=== PATIENT | female | born 1985 | race Caucasian/White ===

== ENCOUNTER → 2017-09-08 | Outpatient (CLI) | payer OTHER ==
--- NOTE | 2017-09-09 08:25 | BMR ---
EXAMINATION TYPE: MR breast BILAT wo/w con DATE OF EXAM: 09/08/2017 COMPARISON: Most recent bilateral 3-D breast mammogram September 27, 2015 BI-RADS 4. Complete right br east ultrasound September 27, 2015 BI-RADS 1. Complete right breast ultrasound January 27, 2016 BI-RADS 1. HISTORY: FAMILY HX BREAST CA, RT MASS or lump. Patient states has palpable lump that changes in size when patient is on control. Last known menstrual period August 25. CONTRAST: Multiplanar, multisequence images of the breasts were acquired utilizing 6 mL intravenous Gadavist ga dolinium contrast. TECHNIQUE: A series of fat and water weighted images in the long and short axis views of both breasts are obtained in conjunction with dynamic contrast MRI with subtraction technique. Three-dimensional and additional postprocessing imaging is created on independent workstation and reviewed during offi cial interpretation of this study. FINDINGS: There is extremely dense fibroglandular tissue redemonstrated in both breasts. There is min imal background parenchymal enhancement. There is no significant cyst or cystic mass in either breas t. No suspicious skin thickening is noted bilaterally. There is well-circumscribed oval lesion below level of nipple left breast marked lateral aspect 6 x 3 mm with heterogeneous contrast enhancement seen image 17 series 301. I suspect low-lying otherwise b enign-appearing lymph node. In the right breast posterior tissue lateral aspect there is 5 x 2 mm oval enhancing well-circumscrib ed lesion just above the pectoralis muscle seen best image 370 series 701, there is similar type lesi on towards the right axillary are noted at this level on same image. Dynamic postcontrast images show benign progressive enhancement. There are benign-appearing bilateral subcentimeter axillary lymph nodes. There is no suspicious axill pipo or intramammary adenopathy clearly seen. No suspicious findings outside the breasts are identified. IMPRESSION: No convincing MRI evidence for invasive malignancy in either breast. BI-RADS 2 presumed benign findings. Recommendation: Annual screening mammogram at 40 years of age as per ACR guidelines. If right breast lump recurs, targeted ultrasound would be advised. Some consider annual or biannual MRI surveillance in high risk patients, correlate clinically.
== END | disposition home or self-care (01) ==
LOC: RADMRIMAIN 09:42
PROVIDERS: ATTEND Surgery
DX: N63.11 Unspecified lump in the right breast, upper outer quadrant (principal); Z80.3 Family history of malignant neoplasm of breast
CPT/HCPCS: 0159T; C8908; A9581; 77059

== ENCOUNTER → 2019-02-23 | Outpatient (CLI) | payer OTHER ==
--- NOTE | 2019-02-23 13:07 | MR ---
EXAMINATION TYPE: MR shoulder LT wo con DATE OF EXAM: 02/23/2019 COMPARISON: None HISTORY: Pain in left shoulder TECHNIQUE: Multiplanar, multisequence imaging of the left shoulder is performed without contrast. FINDINGS: Rotator Cuff: Intact, and there is some increased signal within the tendon Acromioclavicular Joint: There is increased T2 signal inferior to the acromion posteriorly could repr esent a small amount of fluid or possibly ganglion with fluid signal suspected along the subacromial subdeltoid bursa region Glenohumeral Joint: Maintained Labrum: The labrum appears grossly intact given limitation of non-arthrogram study. Biceps Tendon: The long head of biceps is in normal location within bicipital groove, some fluid sign al present along the long head of biceps tendon. Bone marrow signal: No focal abnormal marrow signal is appreciated. Other: No additional significant abnormality is appreciated. IMPRESSION: Findings may represent tendinosis of the rotator cuff. No rotator cuff tear.
== END | disposition home or self-care (01) ==
LOC: RADMRIMAIN 09:53
PROVIDERS: ATTEND Family Medicine
DX: M25.512 Pain in left shoulder (principal); G89.29 Other chronic pain